=== PATIENT | male | born 1945 | race Caucasian/White ===

== ENCOUNTER 2019-03-07 06:02 | Inpatient (IN) | payer OTHER ==
[~2019-03-07] VITALS: Ht 172.7 cm; Wt 85.5 kg
[~2019-03-07 06:02] MED LIST: HYDR25TA4 PO; LISI-646 PO; LORA1TAB12 PO; SILD50TA42 PO
[2019-03-07] MEDS ORDERED: ceFAZolin 1GM/50ML 100 ML IV ONE (06:22)
[2019-03-07] MEDS ORDERED: ACETAMINOPHEN IV 100 ML IV ONE (06:22)
[2019-03-07] MEDS ORDERED: ACETAMINOPHEN IV 1000 MG/100ML (10MG/ML) IV ONE ×2 (06:30→12:15)
[2019-03-07] MEDS ORDERED: DOXAPRAM HCL 20 MG/ML 20ML VIAL INJ IV ONE (07:02)
[2019-03-07] MEDS ORDERED: LIDOCAINE 1% HCL (LOCAL ANESTH.) INJ 20ML MDV ONE (07:02)
[2019-03-07] MEDS ORDERED: SUCCINYLCHOLINE CHLORIDE 20 MG/ML 10ML VIAL IV ONE (07:02)
[2019-03-07] MEDS ORDERED: BUPIVACAINE W/ EPINEPH 0.25% INJ 50ML MDV ONE (07:08)
[2019-03-07] MEDS ORDERED: KETOROLAC TROMETH 30 MG/ML 1ML VIAL ONE (07:08)
[2019-03-07] MEDS ORDERED: MORPHINE SULF(PF) 0.5MG/ML 10ML VIAL ONE (07:08)
[2019-03-07] MEDS ORDERED: HYDROmorphone HCL 2 MG/ML VL ONE (07:09)
[2019-03-07] MEDS ORDERED: fentaNYL CITRATE 10 ML ONE (07:09)
[2019-03-07] MEDS ORDERED: SODIUM CHLORIDE LOCK 10 ML ONE ×2 (07:09→07:10)
[2019-03-07] MEDS ORDERED: ONDANSETRON HCL 4 MG/2 ML VIAL ONE (07:09)
[2019-03-07] MEDS ORDERED: MIDAZOLAM HCL 1MG/1ML-2 ML VIAL ONE (07:09)
[2019-03-07] MEDS ORDERED: fentaNYL CITRATE 100 MCG/2 ML VL ONE (07:09)
[2019-03-07] MEDS ORDERED: PROPOFOL 10 MG/ML 20 ML IV ONE (07:09)
[2019-03-07] MEDS ORDERED: ROCURONIUM 10MG/ML 10ML VIAL IV ONE (07:09)
[2019-03-07] MEDS ORDERED: VANCOMYCIN HCL 1000 MG VL ONE (07:13)
[2019-03-07] MEDS ORDERED: HYDROmorphone HCL 2 MG/ML VL IV PRN (08:15)
[2019-03-07] MEDS ORDERED: MORPHINE SULFATE 4 MG/ML SYR/VIAL IV PRN ×2 (08:15→10:15)
[2019-03-07] MEDS ORDERED: fentaNYL CITRATE 100 MCG/2 ML VL IV PRN (08:15)
[2019-03-07] MEDS ORDERED: METOCLOPRAMIDE HCL 5MG/ml INJ 2ml VIAL IV PRN (08:15)
[2019-03-07] MEDS ORDERED: NEOSTIGMINE 1 MG/ML INJ (10mg/10ML VIAL) ONE (09:20)
[2019-03-07] MEDS ORDERED: GLYCOPYRROLATE 0.2 MG/ML 1ML VIAL ONE (09:20)
[2019-03-07] MEDS: LORazepam 0.5 MG TAB PO SCH ×2 (10:00→22:00)
[2019-03-07] MEDS: D5W/LACTATED RINGERS 1,000 ML IV SCH (10:06)
[2019-03-07] MEDS ORDERED: NITROGLYCERIN 0.4 MG SL TAB SL PRN (10:15)
[2019-03-07] MEDS ORDERED: PATIENTS OWN MEDICATION (Sildenafil Citrate (Viagra) 1 TAB) PO SCH (10:15)
[2019-03-07] MEDS ORDERED: BISACODYL 5 MG EC TAB PO PRN (10:15)
[2019-03-07] MEDS: ceFAZolin 1GM/50ML 50 ML IV SCH ×2 (10:15→20:24)
[2019-03-07] MEDS ORDERED: ONDANSETRON HCL 4 MG/2 ML VIAL IV PRN (10:15)
[2019-03-07] MEDS ORDERED: HYDROcodone-ACET 5/325MG TAB PO PRN (10:15)
[2019-03-07] MEDS ORDERED: ACETAMINOPHEN/CODEINE#3 (300/30mg) TAB PO PRN (10:15)
[2019-03-07] MEDS ORDERED: MORPHINE SULF INJ 2 MG/ML SYRINGE 1ML IV PRN (10:15)
[2019-03-07] MEDS ORDERED: ENOXAPARIN SOD 40 MG/0.4 ML SYRINGE SC ONE (10:30)
[2019-03-07] MEDS ORDERED: HCTZ 25 MG TAB PO ONE (10:30)
[2019-03-07] MEDS ORDERED: DOCUSATE SOD 100 MG CAP PO ONE (10:30)
[2019-03-07] MEDS ORDERED: LISINOPRIL 20 MG TAB PO ONE (10:30)
--- NOTE | 2019-03-07 11:50 | NUR ---
Telemetry admit from JOSEFINA CASTELLANO admitted to Telemetry unit after SBAR received. Patient oriented to CLARISSA MURPHY RN primary RN, unit, 216A, and unit policies regarding patient care and visiting hours. Patient now on continuous telemetry monitoring, tele box #29 and telemetry reading on arrival to unit is 65. Patient placed on bedside oxygen, weighed by bedscale and encouraged to call if they need something. All questions and concerns addressed, patient verbalized understanding.
[2019-03-07 12:18] VITALS: BP 128/74
[2019-03-07 12:54] VITALS: BP 128/74
[2019-03-07] MEDS: SODIUM CHLOR 0.9% PF (SALINE LOCK) 10ML VIAL/SYR IV SCH (14:00)
[2019-03-07 15:13] LABS: Basophils # (auto) 0 uL; Basophils % (auto) 0.1 % (0.0-2.0); Eosinophils # (auto) 0 uL; Hematocrit 35.6 % (41.0-53.0); Hemoglobin 12.1 g/dL (13.5-17.5); Lymphocytes # (auto) 1.3 uL; Lymphocytes % (auto) 7.4 % (10.0-50.0); Mean Corpuscular Hemoglobin 32.4 pg (28.0-32.0); Mean Corpuscular Volume 95.3 fL (80.0-100.0); Neutrophils % (auto) 86.5 % (37.0-80.0); Platelet Count (auto) 209 10^3/uL (140-450); Red Blood Cells 3.73 10^6/uL (4.5-5.90); Red Cell Distribution Width 13.1 % (11.8-14.3); White Blood Cell 17.4 10^3/uL (4.4-10.8)
[2019-03-07 15:29] LABS: BUN/Creatinine Ratio 20.3; Potassium 3.8 mmol/L (3.5-5.1)
[2019-03-07 17:08] VITALS: BP 110/68
--- NOTE | 2019-03-07 19:25 | NUR ---
Opening Shift Note Received report from steff Mccallum RN. Assumed care of patient, awake and alert. No S/S of distress/SOB, c/o pain to left shoulder of 10. Sling to left arm in place and SCD to bilateral legs on. Family at bedside, instructed on POC and to call for assist PRN, will continue to monitor for changes Q1hr and PRN. Bed placed in lowest position, bed alarm turned on and call light within reach.
--- NOTE | 2019-03-07 19:29 | NUR ---
Closing shift note Care endorsed to production shift supervisor RN
[2019-03-07 20:00] VITALS: BP 108/61
[2019-03-07] MEDS: DOCUSATE SOD 100 MG CAP PO SCH (21:38)
[2019-03-07 22:00] VITALS: BP 108/61
--- NOTE | 2019-03-07 22:00 | NUR ---
ATIVAN HELD RELATED TO PATIENT IS COMPLAINING OF DIZZINESS. BLOOD PRESSURE IS 111/69 AND PULSE IS 70. WILL MONITOR
[2019-03-08] MEDS: SODIUM CHLOR 0.9% PF (SALINE LOCK) 10ML VIAL/SYR IV SCH ×2 (02:18→05:44)
[2019-03-08] MEDS: ceFAZolin 1GM/50ML 50 ML IV SCH (02:18)
[2019-03-08] MEDS: D5W/LACTATED RINGERS 1,000 ML IV SCH (02:23)
--- NOTE | 2019-03-08 04:12 | NUR ---
ROUNDS PATIENT IS ALERT AND ORIENTED, NO DISTRESS NOTED AND PATIENT STATES HE HAS PAIN OF 3/10 BUT DOES NOT NEED ANY PAIN MEDICATION AT THIS TIME. NO DISTRESS NOTED. CUP OF ICE GIVEN TO PATIENT PER REQUEST.
[2019-03-08 06:57] LABS: Hematocrit 32.1 % (41.0-53.0); Hemoglobin 11.2 g/dL (13.5-17.5)
[2019-03-08 07:27] LABS: Potassium 3.5 mmol/L (3.5-5.1)
[2019-03-08 07:33] LABS: Albumin 2.8 g/dL (3.4-5.0); BUN/Creatinine Ratio 16.5; Calcium 7.8 mg/dL (8.5-10.1)
[2019-03-08 07:43] LABS: Bilirubin, Total 0.7 mg/dL (0.2-1.0); Total Protein 5.4 g/dL (6.4-8.2)
[2019-03-08 09:36] VITALS: BP 108/61
[2019-03-08] MEDS ORDERED: LISINOPRIL 20 MG TAB PO SCH (10:00)
[2019-03-08] MEDS ORDERED: ENOXAPARIN SOD 40 MG/0.4 ML SYRINGE SC SCH (10:00)
[2019-03-08] MEDS ORDERED: HCTZ 25 MG TAB PO SCH (10:00)
[2019-03-08] MEDS: LORazepam 0.5 MG TAB PO SCH (10:00)
[2019-03-08] MEDS: DOCUSATE SOD 100 MG CAP PO SCH (10:18)
[2019-03-08 14:11] VITALS: BP 117/63
--- NOTE | 2019-03-08 14:24 | NUR ---
I called [facility] and spoke with Billboard Poster Cherelle, she is arranging home health through [facility] (phone [phone]). I spoke with patient's nurse Mariela and made her aware-I also provided her with the phone number to give to the family.
--- NOTE | 2019-03-08 15:24 | NUR ---
Discharge Went over discharge paperwork. Spoke with social science teacherJulianna. Provided patient with [facility] phone # [phone]. Informed patient that the home health nurse will come and assess patient's needs. Removed IV. Removed ID band. Patient left with spouse. Took all personal belongings. Prescription given to spouse.
--- NOTE | 2019-03-08 16:50 | NUR ---
assessment Per consult DC planning for home today. Patient discharged home prior to being assessed. Addendum: 03/08/19 at 1651 by Robina Carrero Amended: Links added.
== END 2019-03-08 14:15 | disposition home health service (06) | DRG 483 ==
LOC: SUR 06:02 → CENTRAL 12:04 → TELE-CENTR 18:59
PROVIDERS: ADMIT Orthopaedic Surgery Adult Reconstructive Orthopaedic Surgery; ATTEND Orthopaedic Surgery Adult Reconstructive Orthopaedic Surgery
PROC: 8E0 Other Procedures, Physiological Systems and Anatomical Regions, Other Procedures (ICD-10-PCS; 2019-03-07)
PROC: 0RRK00Z Replacement of Left Shoulder Joint with Reverse Ball and Socket Synthetic Substitute, Open Approach (ICD-10-PCS; principal; 2019-03-07 07:37)
DX: M75.102 Unspecified rotator cuff tear or rupture of left shoulder, not specified as traumatic (principal); I10 Essential (primary) hypertension; M19.90 Unspecified osteoarthritis, unspecified site; G89.29 Other chronic pain; Z88.0 Allergy status to penicillin; Z79.899 Other long term (current) drug therapy
CPT/HCPCS: 36415; 73020; 80048; 80053; 85014; 85018; 85025; 86850; 86900; 86901; 97163; C1713; C1776; G0378; J0131; J0330; J0690; J1885; J2001; J2250; J2405; J2704

== ENCOUNTER 2023-12-05 08:07 | Inpatient (IN) | payer OTHER ==
[~2023-12-05] VITALS: Ht 170.2 cm; Wt 75.5 kg
[~2023-12-05 08:07] MED LIST changes: +ALFU1TAB15 PO; +CARV-214 OR; +DAPA1TAB4 PO; -HYDR25TA4 PO; -LISI-646 PO; +LORA-1123 PO; -LORA1TAB12 PO; +OMEP20TA PO; +SACU1TAB PO; -SILD50TA42 PO; +SPIR25TA8 PO; +TADA20TA52 PO
[2023-12-05] MEDS: DexAMETHasone SOD PHOS 4 MG/1ML SDV INJ ONE (09:33)
[2023-12-05] MEDS ORDERED: DexAMETHasone SOD PHOS 10MG/1ML VIAL INJ ONE (09:36)
[2023-12-05] MEDS ORDERED: LIDOCAINE 1% INJ PF 5ML AMP ONE (09:36)
[2023-12-05] MEDS ORDERED: ONDANSETRON HCL 4 MG/2 ML VIAL ONE (09:36)
[2023-12-05] MEDS ORDERED: KETOROLAC TROMETH 30 MG/ML 1ML VIAL ONE ×2 (09:36→10:17)
[2023-12-05] MEDS ORDERED: PROPOFOL 10 MG/ML 20 ML IV ONE ×2 (09:36→11:58)
[2023-12-05] MEDS ORDERED: GLYCOPYRROLATE 0.2 MG/ML 1ML VIAL ONE (09:36)
[2023-12-05] MEDS ORDERED: KETAMINE 50mg/ML 1ml syringe ONE (09:37)
[2023-12-05] MEDS: ceFAZolin 2 GM/D5W50ml 50 ML IV ONE (09:45)
[2023-12-05] MEDS: TRANEXAMIC ACID 20 ML ONE (10:11)
[2023-12-05] MEDS: BUPIVACAINE HCL 0.25% P/F 10 ML VIAL ONE (10:12)
[2023-12-05] MEDS ORDERED: MORPHINE SULF PF 5 MG/10 ML VIAL ONE (10:17)
[2023-12-05] MEDS: CELECOXIB 100 MG CAP PO ONE (10:30)
[2023-12-05] MEDS: CEFEPIME 1GM/ 50ML 50 ML IV ONE (10:30)
[2023-12-05] MEDS: ACETAMINOPHEN IV 1000 MG/100ML (10MG/ML) IV ONE (10:30)
[2023-12-05] MEDS: PREGABALIN CAPSULE 75 MG CAP PO ONE (10:30)
[2023-12-05] MEDS ORDERED: ePHEDrine SULFATE 50 MG/ML AMP ONE (11:08)
[2023-12-05] MEDS ORDERED: MORPHINE SULFATE INJ 2 MG/ml SYRG IV PRN (12:00)
[2023-12-05] MEDS ORDERED: HYDROmorphone HCL 2 MG/ML VL/or syr IV PRN ×2 (12:00→12:45)
[2023-12-05] MEDS ORDERED: NITROGLYCERIN 0.4 MG SL TAB SL PRN (12:00)
[2023-12-05] MEDS: VANCOMYCIN HCL 1000 MG VL ONE (12:10)
[2023-12-05 12:25] VITALS: O2SAT 98
[2023-12-05] MEDS ORDERED: oxyCODONE HCL 5MG TAB PO PRN (12:45)
[2023-12-05] MEDS ORDERED: fentaNYL CITRATE 100 MCG/2 ML VL IV PRN (12:45)
[2023-12-05] MEDS ORDERED: FLUMAZENIL 0.1 MG/ML INJ 10ML MDV IV PRN (12:45)
[2023-12-05] MEDS ORDERED: ePHEDrine SULFATE 50 MG/ML AMP IV PRN (12:45)
[2023-12-05] MEDS ORDERED: hydrALAZINE HCL 20 MG/ML VL IV PRN (12:45)
[2023-12-05] MEDS ORDERED: NALOXONE HCL 0.4 MG/ML VIAL IV PRN (12:45)
[2023-12-05] MEDS: ONDANSETRON HCL 4 MG/2 ML VIAL IV PRN ×2 (15:30→22:01)
[2023-12-05] MEDS: SODIUM CHLOR 0.9% PF (SALINE LOCK) 10ML VIAL/SYR IV SCH (16:19)
[2023-12-05] MEDS: ceFAZolin 1GM/50ML 50 ML IV SCH (16:21)
[2023-12-05 16:27] VITALS: BP 115/58; PULSE 54; RESP 16; TEMP 98.3; O2SAT 96
[2023-12-05 16:32] VITALS: BP 115/58; PULSE 54; RESP 16; TEMP 98.3; O2SAT 96
[2023-12-05] MEDS: LACTATED RINGER'S 1,000 ML IV SCH (18:26)
[2023-12-05] MEDS ORDERED: LORazepam 0.5 MG TAB PO PRN (18:30)
[2023-12-05 20:00] VITALS: PULSE 79; RESP 17; O2SAT 93
[2023-12-05] MEDS: SACUBITRIL-VALSARTAN 24mg/26mg TAB PO SCH (21:55)
[2023-12-05] MEDS: CARVEDILOL 3.125 MG TAB PO SCH (21:55)
[2023-12-05] MEDS: DOCUSATE SOD 100 MG CAP PO SCH (21:55)
[2023-12-05 22:00] VITALS: BP 122/60; PULSE 78; RESP 18; TEMP 98.2; O2SAT 93
[2023-12-06] VITALS (7 sets, daily range): BP systolic 95–112; BP diastolic 49–84; PULSE 59–76; RESP 16–18; TEMP 97.5–98.7; O2SAT 94–98
[2023-12-06] MEDS: SPIRONOLACTONE 25 MG TAB PO SCH (06:45)
[2023-12-06] MEDS: Dapagliflozin Propanediol (Farxiga) 10 MG PO SCH (07:00)
[2023-12-06 07:52] LABS: Hematocrit 41.3 % (41.0-53.0); Hemoglobin 13.8 g/dL (13.5-17.5)
[2023-12-06 08:02] LABS: Alanine Aminotransferase 15 U/L (7-40); Alkaline Phosphatase 51 U/L (46-116); Anion Gap 4 (5-15); BUN/Creatinine Ratio 16.3 (10.0-20.0); Blood Urea Nitrogen 16 mg/dL (9-23); Calcium 9.5 mg/dL (8.7-10.4); Carbon Dioxide 26 mmol/L (20-30); Chloride 105 mmol/L (98-107); Glucose 125 mg/dL (74-106); Potassium 4.7 mmol/L (3.5-5.1); Sodium 135 mmol/L (136-145)
[2023-12-06 08:03] LABS: Albumin 3.6 g/dL (3.2-4.8); Aspartate Aminotransferase 14 U/L (13-40)
[2023-12-06] MEDS: ENOXAPARIN SOD 40 MG/0.4 ML SYRINGE SC SCH (08:55)
[2023-12-06] MEDS: ALFUZOSIN HYDROCHLORIDE 10 MG PO SCH (08:56)
[2023-12-06] MEDS: OMEPRAZOLE-SOD BICARB 20 MG POWDER PO SCH (08:56)
[2023-12-06] MEDS ORDERED: TADALAFIL 20 MG PO SCH (10:00)
[2023-12-06] MEDS: OXYCODONE W/ ACETAMINOPHEN 5/325MG TABLET PO PRN (17:48)
[2023-12-07 01:00] VITALS: BP 96/58; PULSE 58; RESP 18; TEMP 98.2; O2SAT 94
[2023-12-07 05:00] VITALS: BP 103/56; PULSE 65; RESP 17; TEMP 98.5; O2SAT 94
[2023-12-07 07:11] LABS: Hematocrit 35.6 % (41.0-53.0); Hemoglobin 12.2 g/dL (13.5-17.5)
[2023-12-07 09:00] VITALS: BP 104/51; PULSE 60; RESP 18; TEMP 98.1; O2SAT 94
[2023-12-07 12:10] VITALS: BP 118/72; PULSE 64; RESP 20; TEMP 97.6; O2SAT 96
[2023-12-07 15:15] VITALS: BP 118/72; PULSE 64
== END 2023-12-07 16:25 | disposition home health service (06) | DRG 470 ==
LOC: SUR 08:07 → OVERFLOW 12:01 → WEST WING 16:10
PROVIDERS: ADMIT Orthopaedic Surgery Adult Reconstructive Orthopaedic Surgery; ATTEND Orthopaedic Surgery Adult Reconstructive Orthopaedic Surgery
PROC: 0SRC0J9 Replacement of Right Knee Joint with Synthetic Substitute, Cemented, Open Approach (ICD-10-PCS; principal; 2023-12-05 10:49)
DX: M17.11 Unilateral primary osteoarthritis, right knee (principal)
CPT/HCPCS: 36415; 73562; 80053; 85014; 85018; 86850; 86900; 86901; 97116; 97162; 97530; C1713; G0378; J0131; J1100; J1885; J2405; J2704; J3490